=== PATIENT | female | born 1970 | race Caucasian/White ===

== ENCOUNTER 2017-02-03 06:10 | Observation (INO) | payer MEDICAID ==
[~2017-02-03] VITALS: Ht 165.1 cm; Wt 103.5 kg
[~2017-02-03 06:10] MED LIST: ABILIFY5 MG PO; ADULT LOW DOSE81 MG PO; AMLO5TAB PO; AMLODIPINE10 MG PO; ATIVAN0.5 MG PO; ATORVASTATIN CA10 M1 PO; BENTYL10 M1 PO; BENTYL20 MG PO; BUPROPION HCL75 M1 PO; CARVEDILOL 25MG25 MG PO; CELEXA10 MG PO; CLONIDINE 0.2M0.2 MG PO; COREG25 MG PO; DULERA1 ARO IH; EFFIENT10 MG PO; FUROSEMIDE 20MG20 MG PO; HYDROCHLOROTHIA25 M1 PO; IMODIUM A-1 MG/7.5 M PO; KEFLEX500 M1 PO; LASIX 20MG. TAB20 MG PO; LEVOTHYROXINE0.05 MG PO; LISINOPRIL10 MG PO; LORAZEPAM1 MG/TABLE PO; LORTAB 5/500 501 TAB PO; LYRICA25 MG PO; MAXZIDE 25 MG-31 TAB PO; METFORMIN ER500 MG PO; METFORMIN500 MG PO; METOPROLOL TAR100 MG PO; NICODERM C21 MG/24 H TD; NICOTINE PATCH;21 MG TD; NITROSTAT0.4 MG SL; NORCO 325 MG-51 TAB PO; NORVASC 10MG. T10 MG PO; OXYCODONE HYDRO1 TA1 PO; OXYCODONE-ACETA1 TAB PO; PANTOPRAZOLE SO40 M1 PO; PERCOCET 10 MG1 EACH PO; PERCOCET 325 MG1 TA4 PO; PLAVIX75 M1 PO; PREDNISONE50 MG PO; PROAIR HFA0.09 MG/AC IH; PROVENTIL0.09 MG/A1 IH; RISPERIDONE1 M2 PO; SYMBICORT1 AE1 IH; SYNTHROID0.2 MG PO; TRAZODONE150 MG PO; VALIUM 5MG TABLE5 MG PO; VICODIN 5/500 T1 TAB PO; ZOCOR40 MG PO; ZOFRAN4 MG PO
[2017-02-03 06:11] VITALS: BP 154/99
--- NOTE | 2017-02-03 06:13 | Emergency Room Report ---
History of Present Illness Time Seen by 06Rickie Presenting Problem in Triage Pt arrived:Wheelchair Presenting Problem:C/O TIGHTNESS IN CHEST , SHORTNESS OF BREATH. 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 N Clinical Suspician of Infection? N Mental Status: 1 - Regular (Normal Baseline) Sepsis Risk:Low Sepsis Risk Have you (or family members/close friends) recently traveled outside the [place]? N If Yes, where/when: Have you had exposure to infectious disease within the past month? N TB? Other? Specify: Comment The patient complains of chest pain, leg pain and muscle weakness. She says that she has had diffuse pain in her legs and a feeling of weakness in her legs and arms for a couple of weeks. She says she saw Dr. Patino in the office about 2 weeks ago and had blood work at that time. She says she was told her potassium was okay. She has a history of low potassium in the past. She was having swelling of her feet at that time and he put her on Spironazide spironolactone in addition to the Lasix she was started taking. Though symptoms have continued. She also developed chest pain last night at about 8 PM. She describes a pressure sensation in her LEFT anterior chest which radiates up to her LEFT neck and jaw, but she says in her neck and jaw it is more of a sharp pain. It is associated with shortness of breath, nausea, and diaphoresis. She took a nitroglycerin and baby aspirin at midnight last night but it did not help. Discomfort has been constant all night long. She has a history of coronary artery disease with 6 stents, numerous previous angiograms. She was admitted here December 10 for hypokalemia and chest pain. She had a [employer] Myoview test which was negative. ALLERGIES Coded Allergies: moxifloxacin (From AVELOX) (Intermediate, I-HIVES 05/10/16) NSAIDS (Non-Steroidal Anti-Inflamma ("WAS TOLD TO NOT TAKE ANY DUE TO MEDS SHE IS ON" 05/10/16) diphenhydramine (From BENADRYL) ("JITTERY" 05/10/16) morphine (S-DIFF. BREATHING 12/10/16) Home Medications Reported Medications Nitroglycerin (Nitrostat) 0.4 MG SL PRN Metformin HCL (Metformin) 500 MG PO BID MOMETASONE/FORMOTEROL (Dulera 100 Mcg/5 Mcg Inhaler) 1-2 PUFFS IH BID Levothyroxine Sodium (Levothyroxine) 0.05 MG PO DAILY Lorazepam (Ativan 0.5MG) 0.5 MG PO TID Clopidogrel Bisulfate (Plavix) 75 MG PO DAILY Lisinopril 20 MG PO DAILY Risperidone 1 MG PO QHS #60 TAB Pantoprazole Sodium 40 MG PO DAILY 30 Days Aspirin (Adult Low Dose Aspirin EC) 325 MG PO DAILY Furosemide (Lasix 40MG) 20 MG PO DAILY Carvedilol (Carvedilol 25MG) 25 MG PO BID Spironolactone (Spironolactone) 25 MG NG DAILY Gabapentin (Gabapentin 100MG) 100 MG PO QHS #30 CEPHALEXIN (Keflex 500MG Capsule) 500 MG PO BID #30 ACETAMINOPHEN WITH CODEINE (Acetaminophen-Cod #3 Tablet) 1 TAB PO TID #30 Amlodipine Besylate 2.5 MG PO DAILY #30 PAROXETINE HCL (Paroxetine Hcl) 40 MG PO DAILY #30 Atorvastatin Calcium 20 MG PO DAILY #30 ALBUTEROL (Proventil Hfa Inhaler) 1-2 PUFF IH Q4HP History Medical History General CAD? Yes Angina: Yes AL: Yes Hypertension? Yes Hyperlipidemia? Yes CHF? No DVT? No PE? No COPD? Yes Asthma? Yes Anemia? No GERD? Yes Gastric ulcers? No GI Bleed? No Hernia? Yes Thyroid Problems? Yes Hypothyroidism? Yes CVA? No Seizures? No Diabetes? Yes Insulin Dependent: No Insulin Pump: No Home FSBS? No Renal Insuffiency? No End Stage Renal Disease? No UTI? Yes Stones? No BPH? No GB Disease: Yes Nephritic Syndrome? No Asplenia? No Hepatitis? No Sickle Cell Disease? No Arthritis? Yes Migraines? No Cataracts? No Glaucoma? No MRSA? Yes HIV? No TB? No Anxiety? Yes Depression? Yes Cancer? No More? Yes Additional hx: OSTEOARTHRITIS IRREGULAR HEART BEAT/ VTACH Immunization Hx DT/Tetanus 1-4 Years Ago Flu 2016-17FSN Pneumonia Received In Past Surgical Hx Previous Surgery?Y Appendix LAP HYSTEROSCOPY L HEART CATH X 13 Tubal Ligation LEAP CONE X 3 C SECTION UTERINE ABLATION INCISIONAL HERNIA REPAIR CONCHITA Gallbladd CARDIAC STENTS X 6 Family History Family Hx Diabetes Yes CAD Yes Hypertension Yes Hyperlipidemia Yes Cancer No TB No Social History Smoking Hx Packs/day < 1 Pack Alcohol Alcohol: Yes Review of Systems All Other Systems Reviewed and Negative Constitutional diaphoresis, weakness Respiratory shortness of breath Cardiovascular chest pain Gastrointestinal nausea Musculoskeletal see HPI Physical Exam Vital Signs Vital Signs Date Time Temp Pulse Resp B/P Pulse O2 O2 Flow FiO2 Ox Delivery Rate 02/03 0654 88 18 156/101 100 02/03 0611 99.2 99 18 154/99 100 General Appearance no apparent distress Eye Exam - bilateral eye normal exam, bilateral eye PERRL, bilateral eye EOMI Ear, Nose, Throat hearing grossly normal, normal ENT inspection Neck normal inspection, non-tender, supple, full range of motion Respiratory Status Yes: trachea midline, chest symmetrical, non tender chest. No: respiratory distress. Lung Sounds bilateral: normal breath sounds, lungs clear. 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 No Results/Orders Laboratory Tests 02/03/17 0615: Sodium 132 L, Potassium 3.1 L, Chloride 92 L, Carbon Dioxide 28, BUN 3 L, Creatinine 0.9, Estimated Creat Clear 127, Estimated GFR (MDRD) 67, Glucose 126 H, Calcium 8.7, Total Bilirubin 0.4, AST 27, ALT 29, Alkaline Phosphatase 70, Creatine Kinase 53, CK-MB (CK-2) Rel Index 1.1, CK and CKMB Interp 0.6, Troponin I < 0.02, Total Protein 7.2, Albumin 3.8, Globulin 3.4 H, Albumin/Globulin Ratio 1.1, WBC 7.3, RBC 4.70, Hgb 15.7, Hct 46.1, MCV 98.1 H, RDW 13.3, Plt Count 204, MPV 6.2 L, Gran % 62.7, Gran # 4.6, Lymphocytes % 31.8, Monocytes % 4.0, Eosinophils % 0.7, Basophils % 0.7, Lymphocytes # 2.3, Monocytes # 0.3, Eosinophils # 0.1, Basophils # 0.1, PUBS MCHC 34.2, MCH 33.6 H Current Medication Orders Sig/Josiah Start time Last Medication Dose Route Stop Time Status Admin Potassium Chloride 40 MEQ ONCE ONE 02/03 715 DC PO 02/04 716 Sodium Chloride 10 ML PRN PRN 02/03 630 AC IV 02/05 624 Orders Procedure Date/time Status Decision to admit 02/03 719 Active ELECTROCARDIOGRAM REQUEST 02/03 625 Active CHEST(2 VIEWS-NOT PORTABLE) 02/03 625 Active IV SALINE LOCK 02/03 625 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 No infiltrate, pneumothorax, pleural effusion, or wide mediastinum. Progress - 7:14 AM: Case discussed with Dr. Jackson. He recommends admitting the patient to rule out myocardial infarction and for further evaluation. 7:18 AM: I have discussed the case with Dr. Patino who agrees to admit the patient to the hospital. We discussed the patient's clinical information, including history, exam, laboratory and radiology results and ED course. Per hospital procedure, I will write temporary bridge inpatient orders on the patient. Specific orders requested by the admitting physician: Chest pain order set Departure Departure Disposition Still a Patient Clinical Impression Primary Impression: Chest pain Qualifiers: Chest pain type: precordial pain Qualified Code: R07.2 - Precordial pain Secondary Impressions: Hypokalemia Condition STABLE ED Critical Care Critical Care No at 0740
[2017-02-03] MEDS ORDERED: SPIRONOLACTONE25 MG NG (06:19)
[2017-02-03] MEDS ORDERED: GABAPENTIN100 MG PO (06:20)
[2017-02-03] MEDS ORDERED: KEFLEX 500MG.500 MG PO (06:21)
[2017-02-03] MEDS ORDERED: AMLODIPINE BES2.5 MG PO (06:22)
[2017-02-03] MEDS ORDERED: ACETAMIN W/CODE1 TAB PO (06:22)
[2017-02-03] MEDS ORDERED: PAROXETINE HCL40 MG PO (06:23)
[2017-02-03] MEDS ORDERED: ATORVASTATIN CA20 M1 PO (06:24)
[2017-02-03 06:31] LABS: LYMPH # 2.3 K/mm3 (0.7-4.5); LYMPH % 31.8 % (10-50.0)
[2017-02-03 06:36] LABS: HEMOGLOBIN 15.7 g/dL (12.2-16.2)
[2017-02-03 06:58] LABS: BUN 3 mg/dL (7-18); GFR (ESTIMATED) 67 ML/MIN (59-)
--- NOTE | 2017-02-03 08:46 | PHARMACY CLINIC NOTE ---
Patient Demographics Patient Demographics Admission date: 02/03/17 Date: 02/03/17 Time: 0845 Allergies Coded Allergies: moxifloxacin (From AVELOX) (Intermediate, I-HIVES 05/10/16) NSAIDS (Non-Steroidal Anti-Inflamma ("WAS TOLD TO NOT TAKE ANY DUE TO MEDS SHE IS ON" 05/10/16) diphenhydramine (From BENADRYL) ("JITTERY" 05/10/16) morphine (S-DIFF. BREATHING 12/10/16) HEIGHT- FT: 5 IN: 5.00 K.328 VTE General Information Labs: Laboratory Tests 02/03 0615 Hematology Hgb (12.2 - 16.2 g/dL) 15.7 Hct (37.0 - 47.0 %) 46.1 Plt Count (142 - 424 K/mm3) 204 Disclaimer The following section includes nursing documentation that has been pulled in for pharmacy review. VTE prophylaxis NQF [id number] VTE prophylaxis ordered? Yes Type of prophylaxis/treatment: MARYJANE at 0846
--- NOTE | 2017-02-03 08:53 | RADIOLOGY REPORT PS360 ---
CHEST(2 VIEWS-NOT PORTABLE) COMPARISON: PA and lateral chest 10/30/2016 HISTORY: S pain TECHNIQUE: PA and lateral chest FINDINGS: The lung chan are well expanded and appear clear of infiltrate. Cardiac size is normal, there is left coronary artery stent noted there is no pleural fluid. IMPRESSION: Essentially negative chest
[2017-02-03 09:14] VITALS: BP 119/49
[2017-02-03] MEDS ORDERED: ATORVASTATIN CA40 MG PO (09:30)
[2017-02-03] MEDS ORDERED: ALDACTONE 25MG25 MG NG (09:30)
[2017-02-03 11:03] VITALS: BP 157/108
--- NOTE | 2017-02-03 12:08 | Discharge Summary Standard ---
Demographics: Admit date: 02/03/17 Chief complaint: Progressing Numbness and tingling in lower extremities PRIMARY DIAGNOSIS: CHEST PAIN Allergies: Coded Allergies: moxifloxacin (From AVELOX) (Intermediate, I-HIVES 05/10/16) NSAIDS (Non-Steroidal Anti-Inflamma ("WAS TOLD TO NOT TAKE ANY DUE TO MEDS SHE IS ON" 05/10/16) diphenhydramine (From BENADRYL) ("JITTERY" 05/10/16) morphine (S-DIFF. BREATHING 12/10/16) History of present illness: History of present illness: 46-year-old female presented to the ER with complaints of chest pain. Patient states over the last 2 days she's had numbness and pain that started on her great toes and has progressed up to her lower legs and now is at her hip area. Patient states she is unable to put pressure on her legs due to weakness. Patient states she believes her chest pain was related to the pain and the numbness that she is having in her lower extremities. Patient denies shortness of breath at this time Past medical history: Family HX Diabetes Yes CAD Yes Hypertension Yes Hyperlipidemia Yes Cancer No TB No Immunization HX DT/Tetanus 1-4 Years Ago Flu 2015-FSN Pneumonia Received In Past TB Test in last year No General CAD? Yes Angina: Yes [place]: Yes Hypertension? Yes Hyperlipidemia? Yes CHF? No DVT? No PE? No COPD? Yes Asthma? Yes Anemia? No GERD? Yes Gastric ulcers? No GI Bleed? No Hernia? Yes Thyroid Problems? Yes Hypothyroidism? Yes CVA? No Seizures? No Diabetes? Yes Insulin Dependent: No Insulin Pump: No Home FSBS? No Renal Insuffiency? No UTI? Yes Stones? No BPH? No GB Disease: Yes Nephritic Syndrome? No Asplenia? No Hepatitis? No Sickle Cell Disease? No Arthritis? Yes Migraines? No Cataracts? No Glaucoma? No MRSA? Yes HIV? No TB? No Anxiety? Yes Depression? Yes Cancer? No More? Yes Additional hx: OSTEOARTHRITIS IRREGULAR HEART BEAT/ VTACH MYLOPROLIFERATIVE DISORDER Past Surgical HX Previous Surgery?Y Appendix LAP HYSTEROSCOPY L HEART CATH X 13 Tubal Ligation LEAP CONE X 3 C SECTION UTERINE ABLATION INCISIONAL HERNIA REPAIR CONCHITA Gallbladd CARDIAC STENTS X 6 ABDOMINAL ABCESS Current home meds: Reported Medications Nitroglycerin (Nitrostat) 0.4 MG SL PRN Levothyroxine Sodium (Levothyroxine) 0.05 MG PO DAILY Lorazepam (Ativan 0.5MG) 0.5 MG PO BID Aspirin (Adult Low Dose Aspirin EC) 81 MG PO DAILY Furosemide (Furosemide) 20 MG PO DAILY Spironolactone (Spironolactone) 25 MG NG DAILY Clopidogrel Bisulfate (Plavix) 75 MG PO DAILY Lisinopril 20 MG PO DAILY Risperidone 1 MG PO QHS #60 TAB Pantoprazole Sodium 40 MG PO DAILY 30 Days Carvedilol (Carvedilol 25MG) 25 MG PO BID Gabapentin (Gabapentin 100MG) 100 MG PO QHS #30 CEPHALEXIN (Keflex 500MG Capsule) 500 MG PO BID #30 ACETAMINOPHEN WITH CODEINE (Acetaminophen-Cod #3 Tablet) 1 TAB PO TID #30 Amlodipine Besylate 2.5 MG PO DAILY #30 PAROXETINE HCL (Paroxetine Hcl) 40 MG PO DAILY #30 Atorvastatin Calcium 20 MG PO DAILY #30 ALBUTEROL (Proventil Hfa Inhaler) 1-2 PUFF IH Q4HP Social Hx: Smoking HX Tobacco Yes Type Cigarettes Packs/day 1 1/2 - 2 PACKS Are you/the child exposed to second-hand smoke: Yes Alcohol Alcohol: No Hx of Drug Use Drug Use? No Review of systems: Constitutional see HPI, malaise, weakness. Respiratory No: no symptoms reported. Cardiovascular see HPI, chest pain Gastrointestinal/Abdominal No no symptoms reported Genitourinary No: no symptoms reported. Musculoskeletal No: no symptoms reported. Neurological Yes: numbness, tingling, weakness, parasthesia. No: see HPI. Psychiatric No: no symptoms reported. Exam: Lab data for last 24 hours: Laboratory Tests 02/03/17 1100: Creatine Kinase 45, CK-MB (CK-2) Rel Index 1.6, CK and CKMB Interp 0.7, Troponin I < 0.02 02/03/17 0615: Sodium 132 L, Potassium 3.1 L, Chloride 92 L, Carbon Dioxide 28, BUN 3 L, Creatinine 0.9, Estimated Creat Clear 127, Estimated GFR (MDRD) 67, Glucose 126 H, Calcium 8.7, Total Bilirubin 0.4, AST 27, ALT 29, Alkaline Phosphatase 70, Creatine Kinase 53, CK-MB (CK-2) Rel Index 1.1, CK and CKMB Interp 0.6, Troponin I < 0.02, Total Protein 7.2, Albumin 3.8, Globulin 3.4 H, Albumin/Globulin Ratio 1.1, WBC 7.3, RBC 4.70, Hgb 15.7, Hct 46.1, MCV 98.1 H, RDW 13.3, Plt Count 204, MPV 6.2 L, Gran % 62.7, Gran # 4.6, Lymphocytes % 31.8, Monocytes % 4.0, Eosinophils % 0.7, Basophils % 0.7, Lymphocytes # 2.3, Monocytes # 0.3, Eosinophils # 0.1, Basophils # 0.1, PUBS MCHC 34.2, MCH 33.6 H Admission vital signs: 1ST Vital Signs Result Date Time Pulse Ox 100 02/03 611 B/P 154/99 02/03 611 Temp 99.2 02/03 611 Pulse 99 02/03 06 Resp 18 02/03 611 O2 Delivery ROOM AIR 02/03 09 Exam General appearance: normal appearance, alert, awake Eyes: normal exam ENT: normal exam Neck: normal inspection, full range of motion Cardiovascular: normal exam, regular rate & rhythm Respiratory: normal exam, clear to auscultation, chest non-tender ABD: normal exam, soft Genitourinary: normal voiding & quantity Extremities: absent reflexes in lower extremities. Musculoskeletal: normal exam, muscle pain Skin: normal exam, intact, warm Neuro: normal exam, alert, intact, oriented Hospital Course Hospital Course: Spoke with has accepted patient for transfer to rule out Salvador Correa. Medications Medications: Discharge meds are as noted. Follow up Follow up in office in: 6 DAYS with: Sukumar OLIVEIRA,Keanu Valdez Comment: Discussed with Dr. Sukumar don for transfer at 1302
[2017-02-03 14:08] VITALS: BP 157/108
== END 2017-02-03 14:10 | disposition short-term general hospital (02) ==
LOC: ER 06:10 → 2ND 07:22 → ER 07:22 → 2ND 08:40
PROVIDERS: Emergency Medicine
DX: R07.9 Chest pain, unspecified (principal); I10 Essential (primary) hypertension; J44.9 Chronic obstructive pulmonary disease, unspecified; E11.9 Type 2 diabetes mellitus without complications; Z72.0 Tobacco use; Z95.5 Presence of coronary angioplasty implant and graft; I25.10 Atherosclerotic heart disease of native coronary artery without angina pectoris
CPT/HCPCS: G0378; J2405

== ENCOUNTER → 2017-06-05 | Outpatient (CLI) | payer MEDICAID ==
[~2017-06-05] MED LIST changes: +ACETAMIN W/CODE1 TAB PO; +ALDACTONE 25MG25 MG NG; +AMLODIPINE BES2.5 MG PO; +ATORVASTATIN CA20 M1 PO; +ATORVASTATIN CA40 MG PO; +GABAPENTIN100 MG PO; +KEFLEX 500MG.500 MG PO; +PAROXETINE HCL40 MG PO; +SPIRONOLACTONE25 MG NG
[2017-06-05 15:11] LABS: LYMPH % 24.1 % (10-50.0)
[2017-06-05 17:25] LABS: BUN 8 mg/dL (7-18)
[2017-06-05 17:57] LABS: GFR (ESTIMATED) 90 ML/MIN (59-)
== END ==
LOC: LAB 14:58
PROVIDERS: Podiatrist
DX: R60.9 Edema, unspecified (principal)

== ENCOUNTER → 2017-06-08 | Outpatient (CLI) | payer MEDICAID ==
[2017-06-08 14:32] LABS: AMPHETAMINES/METAMPHETAMINES NEGATIVE ng/mL (<1000)
== END ==
LOC: LAB 13:56
PROVIDERS: Emergency Medicine
DX: Z79.899 Other long term (current) drug therapy (principal)

== ENCOUNTER → 2017-06-22 | Outpatient (CLI) | payer MEDICAID ==
[2017-06-22 12:45] LABS: BUN 9 mg/dL (7-18)
[2017-06-22 12:55] LABS: GFR (ESTIMATED) 67 ML/MIN (59-)
[2017-06-22 13:48] LABS: HEMOGLOBIN 13.7 g/dL (12.2-16.2); LYMPH # 2.3 K/mm3 (0.7-4.5); LYMPH % 27.3 % (10-50.0)
--- NOTE | 2017-06-22 21:15 | RADIOLOGY REPORT PS360 ---
CHEST(2 VIEWS-NOT PORTABLE) Ordering physician: PIPO ORELLANA DPM Age: 46 years Female INDICATION: chest symptomsHTN PROCEDURE: CHEST(2 VIEWS-NOT PORTABLE) FINDINGS: 02/06/2017 October 23, 2016 2 view CXR comparison study Lungs well expanded and clear with nothing definitely acute. Only question some minor linear scarring or atelectasis toward the right lung base.. No pneumothorax. No pleural effusion. Heart normal size with coronary artery stents noted at the left .. Normal pulmonary vascularity. Hilar and mediastinal structures appear satisfactory. Chest wall unremarkable. T-spine intact with mild degenerative changes. IMPRESSION ----- Stable chest with nothing definitely acute.
--- NOTE | 2017-06-22 21:15 | RADIOLOGY REPORT PS360 ---
CHEST(2 VIEWS-NOT PORTABLE) Ordering physician: IPPO ORELLANA DPM Age: 46 years Female INDICATION: chest symptomsHTN PROCEDURE: CHEST(2 VIEWS-NOT PORTABLE) FINDINGS: 02/06/2017 October 23, 2016 2 view CXR comparison study Lungs well expanded and clear with nothing definitely acute. Only question some minor linear scarring or atelectasis toward the right lung base.. No pneumothorax. No pleural effusion. Heart normal size with coronary artery stents noted at the left .. Normal pulmonary vascularity. Hilar and mediastinal structures appear satisfactory. Chest wall unremarkable. T-spine intact with mild degenerative changes. IMPRESSION ----- Stable chest with nothing definitely acute.
== END ==
LOC: LAB 11:29 → RT 11:29
PROVIDERS: Podiatrist
DX: M79.9 Soft tissue disorder, unspecified (principal); Z01.810 Encounter for preprocedural cardiovascular examination; Z01.811 Encounter for preprocedural respiratory examination; Z01.812 Encounter for preprocedural laboratory examination

== ENCOUNTER 2017-07-20 11:10 | Day surgery (SDC) | payer MEDICAID ==
[~2017-07-20] VITALS: Ht 165.1 cm; Wt 100.2 kg
--- NOTE | 2017-07-20 14:19 | Anesthesia Record ---
Anesthesia Record Part II Discharge time: 1440 Destination: Same day surgery PACU nurse assessment review? Yes Patient is: Awake, Stable Anesthesia complications? No at 3165
--- NOTE | 2017-07-20 14:19 | Anesthesia Record ---
Anesthesia Record Part I Total IV fluids: 1100 EBL (ml): 10 Urine Output: 0 Units of blood given: 0 B/P: 150/98 % SaO2: 97 Pulse: 77 Resps: 10 Temp: 97.9 Patient is: Awake, Stable Stable to PACU at: 1410 at 1418
--- NOTE | 2017-07-20 15:01 | Operative Note-Podiatry ---
Procedure/Operative Record Procedure DATE OF PROCEDURE 07/20/17 PREOPERATIVE DIAGNOSIS 1. Left soft tissue mass 2. Left foot pain 3. Neuropathy POSTOPERATIVE DIAGNOSIS Same as Preop Dx PROCEDURE PERFORMED 1. Left foot excision of soft tissue mass 2. Left foot excision of gouty tophi SURGEON Yovani HARMON,Pipo ANESTHESIA General 30cc 0.5% marcaine plain EBL (ml) 10 OPERATIVE NOTE/DISCHARGE/PLAN Indication for procedure: Ms. Pugh is a 46-year-old female who presented to me with pain, neuropathy and left foot swelling. Patient had labs, x-ray, MRI and ultrasound-guided FNA. US FNA showed: Soft tissue nodular densities with surrounding fluid areas are seen overlying the distal second metatarsal. Cytology report showed only rare macrophagias blood and brown pigmented. Also noted some small nodular densities with adjacent minimal fluid is seen medial to the first metatarsal & as well as between the first & second metatarsal heads. MRI left foot 05/24/17: Unusual extensive enhancing nodular and soft tissue involving the first and second RAY as detailed above. Most clinically evident areas enhancing fluid/nodularity overlying the dorsal second metatarsal & extending to second toe. Abnormal signal here measuring over 5 seem in length in total. There is also nodular soft tissue densities seen medial to the distal first metatarsal. Abnormal enhancing tissue signal is seen wrapping about the first metatarsal head and neck extending /Bridging with the the abnormalities noted overlying second toe, discussed above. Abnormal signal at the first metatarsal head and neck. Cannot rule out osteomyelitis but may be reactive bone process. Specifically noted: Mild enhancement of 9 mm cystic area at medial head of first metatarsal. ( Coronal image 17), Mild enhancement of a a 5 mm mildly cystic area plantar aspect first metatarsal head, (coronal image 18). These could be enhancing subchondral cyst but cannot exclude some other erosive process or indolent the osteomyelitis. Discussed swelling and neuropathy etiology and condition with the patient. We also discussed conservative treatment options. For the foot pain in general: conservative treatment options such as anti-inflammatories, padding, inserts, change in shoe wear were discussed. Patient has exhausted conservative treatment at this point is still having swelling and pain symptoms. The MRI results and the ultrasound guided FNA did not conclude with a specific diagnosis. We discussed doing an open biopsy, Fresh frozen section with pathologist to evaluate the soft tissue mass. We discussed differential diagnosis in general from benign nodularities to malignant soft tissue tumor. We discussed surgery. All risks and benefits were discussed including but not limited to: recurrence of the mass, damage to blood vessels and nerves, bleeding, infection, wound complications, need for further surgery, prolonged swelling of the extremity, prolonged pain, RSD/CRPS, DVT, need for amputation, loss of limb, and anesthetic complications. No guarantees were given. All questions fully answered. The patient verbalized understanding and agreed to proceed with surgery. Consent was obtained. On this date and time the patient was deemed an appropriate surgical candidate. Withe informed consent signed the patient was wheeled from the preoperative holding area to the operating theater and placed on the table in normal supine position. General anesthesia was induced. Tourniquet was applied to the right mid-calf at 225mmHg x 49 mins. The left lower extremity was prepped and draped in the normal sterile fashion. Left 2nd Metatarsal, 1st Metatarsal Excision of Soft Tissue Mass: Attention was directed to the left 2nd MPJ, where a soft tissue mass was palpable and noted dorsally over the 2nd met, as well as the 1st interspace and proximal 1st met shaft. A dorsal linear incision was mapped out over mass, over the 2nd MPJ and then the 1st MPJ. Dissection was carried thru skin and sub q tissue, with care to maintain surgical hemostasis. Over the second metatarsal and the mass was now visible. The mass looked like a well formed synovial nodule. The color was that of synovitis. Dissection was then carried down further through the deep fascia, there was no evidence of further mass at the 2nd MPJ. The mass was sent to pathology as a fresh frozen section. Attention was directed to the first MPJ where dissection was carried to the skin and into the subcutaneous tissue. There was thick synovitic fluid noted. The fluid was cultured. Dissection was then carried down through the deep fascia immediately thick gouty tophi crystalline particles were noted at the MPJ. The metatarsal head as well as the base of the proximal phalanx were both eroded. There is no signs of infection. But a bone culture was taken from the first metatarsal head. The first interspace was explored and again multiple small nodules were noted. The soft tissue masses did not appear to be the same crystalline particle gout at the level of the first metatarsophalangeal joint. Some of the crystalline particles were sent as a specimen. Dr. Castillo, pathologist from called after reviewing the fresh frozen sections. Preliminarily she said there is no evidence of neoplasm. She agreed that the specimen from the first metatarsophalangeal joint was gout versus pseudogout. Left Excision of Gouty Tophi: A curette and rongeur was utilized to remove as much of the gouty tophi as possible from the first metatarsophalangeal joint. The wound was reexplored and flushed with copious amounts of saline. The tourniquet was deflated at 49 minutes. There was immediate hyperemic response noted to the digits after the tourniquet was deflated. There was no bleeding vessels noted. 3-0 Vicryl was used to reapproximate deep tissue. 4-0 Monocryl was used to reapproximate sub q tissue. 4-0 Nylon was used to close skin in a mattress suture fashion. The digits were of normal color and appearance postoperatively. The wounds were cleansed. Xeroform, dry sterile dressing was then applied.. The patient was awoken from anesthesia and transferred to recovery with vital signs stable and neurovascular status intact. Specimens: Left second metatarsal dorsal soft tissue mass Left first interspace mass Left first MPJ crystalline particles Left synovitic fluid for culture Left first metatarsal head for bone culture Discharge/Plan: D/C home today when ready and vital signs stable. Patient is to maintain dressing clean dry and intact. Ice behind the knee, top of foot and elevate on two pillows. Partial weight bearing to the left lower extremity. Rx for [place] 7.5, Zofran, Motrin. Obtain post op films, left foot, 3 views. Obtain new uric acid. Follow up with in 1 week. at 1501
--- NOTE | 2017-07-20 15:47 | RADIOLOGY REPORT PS360 ---
FOOT-LT-3 VIEWS HISTORY: S/P LT EXCISION OF STM, LT CHEILECTOMY, EXC. RICHARD LÓPEZ ORDERING PHYSICIAN: PIPO ORELLANA DPM PATIENT AGE: 46 years COMPARISON: 05/17/2017 FINDINGS: 3 portable views are obtained. There is bandage artifact. There is some soft tissue gas at the first metatarsophalangeal junction region which is likely postsurgical. No fracture or dislocation. No radio opaque foreign body other than the bandage artifact. IMPRESSION: Soft tissue gas along the first metatarsophalangeal junction presumed postsurgical otherwise negative
[2017-07-20 20:11] VITALS: BP 138/90
== END 2017-07-20 15:50 | disposition home or self-care (01) ==
LOC: SDC 11:10
PROVIDERS: Podiatrist
PROC: 0QBP0ZZ Excision of Left Metatarsal, Open Approach (ICD-10-PCS; 2017-07-20)
PROC: 0JBR0ZZ Excision of Left Foot Subcutaneous Tissue and Fascia, Open Approach (ICD-10-PCS; principal; 2017-07-20 12:15)
DX: M1A.9XX1 Chronic gout, unspecified, with tophus (tophi) (principal); D48.1 Neoplasm of uncertain behavior of connective and other soft tissue; E11.42 Type 2 diabetes mellitus with diabetic polyneuropathy; F17.200 Nicotine dependence, unspecified, uncomplicated; J45.909 Unspecified asthma, uncomplicated; F17.210 Nicotine dependence, cigarettes, uncomplicated; Z79.84 Long term (current) use of oral hypoglycemic drugs; Z79.02 Long term (current) use of antithrombotics/antiplatelets; Z79.82 Long term (current) use of aspirin; Z79.51 Long term (current) use of inhaled steroids; Z79.899 Other long term (current) drug therapy; F41.9 Anxiety disorder, unspecified; I10 Essential (primary) hypertension; E03.9 Hypothyroidism, unspecified; F32.9 Major depressive disorder, single episode, unspecified
CPT/HCPCS: J2405